=== PATIENT | female | born 2000 | race Caucasian/White ===

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

== ENCOUNTER 2018-03-18 04:12 | Emergency (ER) | payer BC, MEDICAID ==
[2018-03-18 04:20] VITALS: BP 115/61
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
== END 2018-03-18 06:06 | disposition home or self-care (01) ==
LOC: ER 04:12
DX: T59.811A Toxic effect of smoke, accidental (unintentional), initial encounter (principal); J70.5 Respiratory conditions due to smoke inhalation; Y92.039 Unspecified place in apartment as the place of occurrence of the external cause; Y93.84 Activity, sleeping; R51 Headache; R42 Dizziness and giddiness; Z88.2 Allergy status to sulfonamides; J45.909 Unspecified asthma, uncomplicated
CPT/HCPCS: 36415; 82375; 99283; G0378

== ENCOUNTER 2018-06-03 17:19 | Emergency (ER) | payer BC, MEDICAID ==
[2018-06-03 17:56] VITALS: BP 124/74
--- NOTE | 2018-06-03 18:37 | ER Document Report ---
HPI - HPI Patient complains to provider of: pilonidal cyst Onset: Other - 3 days Onset/Duration: Gradual Pain Level: 4 Context: 17 yo female came in because of pain to the area that she has had a pilonidal cyst incised about 3 months ago. Went to general surgeon who did not rec. surgery. No fever. 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 Associated Symptoms: None Exacerbated by: Sitting Relieved by: Denies Similar symptoms previously: Yes Recently seen / treated by doctor: No - ROS ROS below otherwise negative: Yes Systems Reviewed and Negative: Yes All other systems reviewed and negative Past Medical History - General Information source: Patient - Social History Smoking Status: Former Smoker Frequency of alcohol use: None Drug Abuse: None Lives with: Family Family History: Reviewed & Not Pertinent Pulmonary Medical History: Reports: Hx Asthma Renal/ Medical History: Reports: Hx Ovarian Cysts. Denies: Hx Peritoneal Dialysis GI Medical History: Reports: Hx Gastroesophageal Reflux Disease Psychiatric Medical History: Reports: Hx Depression Past Surgical History: Reports: Hx Orthopedic Surgery - 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, 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 - Immunizations Immunizations up to date: Yes Hx Diphtheria, Pertussis, Tetanus Vaccination: Yes Vertical Provider Document - CONSTITUTIONAL Agree With Documented VS: Yes Exam Limitations: No Limitations General Appearance: No Apparent Distress - INFECTION CONTROL TRAVEL OUTSIDE OF THE [place] IN LAST 30 DAYS: No - DERM Notes: inflamed, tender pilonidal area at the gluteal crest, no abscess induration. Course - Vital Signs Vital signs: Temp Pulse Resp BP Pulse Ox 98.6 F 74 16 124/74 100 06/03/18 17:55 06/03/18 17:55 06/03/18 17:55 06/03/18 17:55 06/03/18 17:55 Discharge - Discharge Clinical Impression: Pilonidal inflammation Condition: Good Disposition: HOME, SELF-CARE Instructions: Clindamycin ([facility]), Metronidazole ([facility]), Warm Packs ([facility]) Additional Instructions: Warm compress Tylenol up to 4000 mg a day for pain No work for 2 days Metronidazole 4 times a day for 7 days, do not drink alcohol clindamycin for 7 days Return to the emergency room for any increased size, or, pain or tenderness Prescriptions: Clindamycin HCl [Cleocin 150 mg Capsule] 300 mg PO TID #42 capsule Metronidazole 500 mg PO Q6H #28 tablet Forms: Return to Work Referrals: YISEL COY MD [ACTIVE STAFF] - Follow up as needed
== END 2018-06-03 18:50 | disposition home or self-care (01) ==
LOC: ER 17:19
DX: L05.91 Pilonidal cyst without abscess (principal); Z87.891 Personal history of nicotine dependence
CPT/HCPCS: 99282

== ENCOUNTER 2019-11-26 11:18 | Day surgery (SDC) | payer BC ==
[2019-11-18 10:59] LABS: ABSOLUTE EOSINOPHILS # (AUTO) 0.1 10^3/uL (0.0-0.6); ABSOLUTE LYMPHOCYTES (AUTO) 2.4 10^3/uL (0.5-4.7); ABSOLUTE MONOCYTES (AUTO) 0.7 10^3/uL (0.1-1.4); BASOPHILS % (AUTO) 0.6 % (0-2); EOSINOPHILS % (AUTO) 1.9 % (0-6); HEMATOCRIT 39.6 % (36.0-47.0); HEMOGLOBIN 13.5 g/dL (12.0-15.5); LYMPHOCYTES % (AUTO) 32.7 % (13-45); MEAN CORPUSCULAR HEMOGLOBIN 29.6 pg (27.0-33.4); MEAN CORPUSCULAR HGB CONC 34.1 g/dL (32.0-36.0); MEAN CORPUSCULAR VOLUME 87 fl (80-97); MONOCYTES % (AUTO) 9.3 % (3-13); PLATELET COUNT 198 10^3/uL (150-450); RED BLOOD COUNT 4.56 10^6/uL (3.72-5.28); RED CELL DISTRIBUTION WIDTH 13.1 % (11.5-14.0); SEGMENTED NEUTROPHILS % (AUTO) 55.5 % (42-78); TOTAL CELLS COUNTED % (AUTO) 100 %; WHITE BLOOD COUNT 7.2 10^3/uL (4.0-10.5)
[2019-11-18 11:30] LABS: ANION GAP 8 (5-19); BLOOD UREA NITROGEN 13 mg/dL (7-20); CALCIUM 9.9 mg/dL (8.4-10.2); CARBON DIOXIDE 28 mmol/L (22-30); CHLORIDE 105 mmol/L (98-107); GLUCOSE 90 mg/dL (75-110); POTASSIUM 4.6 mmol/L (3.6-5.0)
[~2019-11-26 11:18] MED LIST: CEFAZOLIN 1 GM/D5W RTU 1 GM/50 ML RTUPB IV ONE; CEFAZOLIN 1 GM/D5W RTU 1 GM/50 ML RTUPB IV PRN; LACTATED RINGERS 1000 ML IV PRN; ROCURONIUM BROMIDE INJ 50 MG/5 ML VIAL IV ONE; VECURONIUM BROMIDE INJ 10 MG VIAL IV ONE
[2019-11-26] MEDS ORDERED: SCOPOLAMINE HYDROBROMIDE 1.5 MG PATCH.TD72 ONE (12:45)
[2019-11-26] MEDS ORDERED: FENTANYL CITRATE INJ/PF 100 MCG/2 ML AMPUL ONE (13:19)
[2019-11-26] MEDS ORDERED: ONDANSETRON HCL INJ/PF 4 MG/2 ML SDV ONE (13:19)
[2019-11-26] MEDS ORDERED: DEXAMETHASONE SOD PHOSPHATE INJ 4 MG/1 ML VIAL ONE (13:19)
[2019-11-26] MEDS ORDERED: MIDAZOLAM 2 MG/2 ML INJ ONE (13:19)
[2019-11-26] MEDS ORDERED: PROPOFOL INJ 200 MG/20 ML VIAL IV ONE ×2 (13:20)
[2019-11-26] MEDS ORDERED: DEXMEDETOMIDINE INJ 80 MCG/20 ML VIAL IV ONE (13:21)
[2019-11-26] MEDS ORDERED: METHYLENE BLUE 50 MG/10 ML AMPULE ONE (13:48)
[2019-11-26] MEDS ORDERED: BUPIVACAINE INJ/PF LIPOSOME/PF 266 MG/20 ML SDV ONE (13:49)
[2019-11-26] MEDS ORDERED: BUPIVACAINE INJ/PF LIPOSOME/PF 266 MG/20 ML SDV INJ ONE (13:58)
[2019-11-26] MEDS ORDERED: METHYLENE BLUE 50 MG/10 ML AMPULE INJ ONE (14:00)
[2019-11-26] MEDS ORDERED: MORPHINE SULFATE 10 MG/ML INJ IV PRN (14:44)
[2019-11-26] MEDS ORDERED: OXYCODONE-ACETAMINOPHEN 5-325 MG TABLET PO PRN ×2 (14:44)
[2019-11-26] MEDS ORDERED: FENTANYL CITRATE INJ/PF 100 MCG/2 ML AMPUL IV PRN ×3 (14:44)
[2019-11-26] MEDS ORDERED: ONDANSETRON HCL INJ/PF 4 MG/2 ML SDV IV PRN (14:44)
[2019-11-26] MEDS ORDERED: MEPERIDINE HCL/PF INJ 25 MG/1 ML DISP.SYRIN IV PRN (14:44)
[2019-11-26] MEDS ORDERED: PROMETHAZINE HCL INJ 25 MG/1 ML VIAL IV PRN ×2 (14:44)
[2019-11-26] MEDS ORDERED: DIPHENHYDRAMINE HCL 50 MG/ML VIAL IV PRN (14:44)
--- NOTE | 2019-11-26 14:45 | Operative Report ---
Nonrecallable Operative Report DATE OF SURGERY: 11/26/19 PREOPERATIVE DIAGNOSIS: Pilonidal cyst POSTOPERATIVE DIAGNOSIS: Pilonidal cyst OPERATION: Pilonidal cystectomy SURGEON: BHANU MARTINEZ TISSUE REMOVED OR ALTERED: Pilonidal cyst subcutaneous tissue and skin COMPLICATIONS: None ESTIMATED BLOOD LOSS: 10 cc INTRAOPERATIVE FINDINGS: See note PROCEDURE: Patient was brought to the operating awake alert in stable condition induced under general anesthesia [place] [facility] [place] and then placed in the operating table in a prone position. The buttocks and buttock cleft were prepped and draped in usual sterile fashion. After appropriate timeout and site verification the procedure commenced. The area of the pilonidal cyst that had healed over was slightly open with a tonsil clamp and then instilled with methylene blue dyed saline. Elliptical incision was made around the buttock cleft to approximately 4 cm above the anal verge with a 15 blade. Dissection was then carried down through the subcutaneous tissue around the pilonidal cyst being sure to keep the methylene blue within the excised specimen. We carried our dissection down through the presacral fascia. Once this was completed the entire specimen was removed and with all the methylene blue blue dyed tissue. Hemostasis was obtained with Bovie cautery. A Conrado drain was then placed at the depth of the wound and brought out in the buttock cleft through a separate stab wound The subcutaneous tissue was reapproximated in 2 layers with interrupted 3-0 Vicryl skin was reapproximated with 2-0 nylon sterile dressing was applied which completed the procedure estimated blood loss was less than 10 cc sponge needle counts correct x2 the patient was awakened in the operating transferred back to the [facility] [place] and returned to recovery in stable condition Sponge needle counts were correct x2
[2019-11-26] MEDS ORDERED: HYDROCODONE/ACETAMINOPHEN 10-325 MG TABLET PO PRN (14:49)
--- NOTE | 2019-11-26 14:49 | Discharge Summary ---
Discharge Summary (SDC) - Discharge Final Diagnosis: Pilonidal cyst Date of Surgery: 11/26/19 Discharge Date: 11/26/19 Condition: Good Treatment or Instructions: She should commence sits baths with Epsom salts on Sunday for 20 minutes 2-3 times a day Prescriptions: Hydrocodone/Acetaminophen [Viola 10-325 Tablet] 1 each PO Q6 PRN #20 tablet PRN Reason: Referrals: JAZLYN IVEY MD [Primary Care Provider] - Discharge Diet: As Tolerated Discharge Activity: Activity As Tolerated, No Lifting Over 10 Pounds Report the Following to Your Physician Immediately: Fever over 101 Degrees, Unusual Bleeding - Patient needs a follow-up with me in 10 to 14 days
[2019-11-26] MEDS ORDERED: ACETAMINOPHEN 1,000 MG/100 ML RTUPB IV ONE (15:26)
[2019-11-26] MEDS ORDERED: HYDROCODONE/ACETAMINOPHEN 5-325 MG TABLET ONE (16:07)
[2019-11-26] MEDS ORDERED: HYDROCODONE/ACETAMINOPHEN 10-325 MG TABLET ONE (16:09)
[2019-11-26 17:53] VITALS: BP 107/62
== END 2019-11-26 17:25 | disposition home or self-care (01) ==
LOC: OROUT 11:18
PROVIDERS: ATTEND Surgery
DX: L05.01 Pilonidal cyst with abscess (principal); Z88.2 Allergy status to sulfonamides; J45.909 Unspecified asthma, uncomplicated; D64.9 Anemia, unspecified; D68.0 Von Willebrand disease; F17.210 Nicotine dependence, cigarettes, uncomplicated; Z79.899 Other long term (current) drug therapy; Z79.51 Long term (current) use of inhaled steroids; L05.91 Pilonidal cyst without abscess
CPT/HCPCS: 36415; 85025; 81025; 80048; 00300; 11770; J2250; J0690; J3490 ×3; J1100; J3010; J2405; J2704; J0131; C9290; Q9968; 300

== ENCOUNTER 2020-04-25 22:41 | Emergency (ER) | payer BC ==
[2020-04-25] MEDS ORDERED: ACETAMINOPHEN 325 MG TABLET PO ONE (22:52)
[2020-04-25] MEDS ORDERED: ACETAMINOPHEN 325 MG TABLET ONE (22:53)
[2020-04-26 01:41] LABS: ABSOLUTE MONOCYTES (AUTO) 1.3 10^3/uL (0.1-1.4); ABSOLUTE NEUT (AUTO) 12.6 10^3/uL (1.7-8.2); BASOPHILS % (AUTO) 0.3 % (0-2); HEMATOCRIT 39.5 % (36.0-47.0); HEMOGLOBIN 13.4 g/dL (12.0-15.5); LYMPHOCYTES % (AUTO) 6.5 % (13-45); MEAN CORPUSCULAR HEMOGLOBIN 30.3 pg (27.0-33.4); MEAN CORPUSCULAR HGB CONC 33.9 g/dL (32.0-36.0); MEAN CORPUSCULAR VOLUME 89 fl (80-97); MONOCYTES % (AUTO) 8.6 % (3-13); PLATELET COUNT 189 10^3/uL (150-450); RED BLOOD COUNT 4.42 10^6/uL (3.72-5.28); RED CELL DISTRIBUTION WIDTH 12.6 % (11.5-14.0); SEGMENTED NEUTROPHILS % (AUTO) 84.6 % (42-78); TOTAL CELLS COUNTED % (AUTO) 100 %; WHITE BLOOD COUNT 14.9 10^3/uL (4.0-10.5)
[2020-04-26 01:45] LABS: APPEARANCE,URINE SLIGHTLY-CLOUDY; BILIRUBIN,URINE NEGATIVE (NEGATIVE); COLOR,URINE YELLOW; GLUCOSE, URINE NEGATIVE (NEGATIVE); KETONES,URINE NEGATIVE (NEGATIVE); LEUKOCYTE ESTERASE,URINE NEGATIVE (NEGATIVE); NITRITE,URINE NEGATIVE (NEGATIVE); PROTEIN,URINE NEGATIVE (NEGATIVE); URINE SPECIFIC GRAVITY 1.009; UROBILINOGEN,URINE NEGATIVE mg/dL (<2.0)
[2020-04-26 01:52] LABS: ALBUMIN 4.2 g/dL (3.5-5.0); ALKALINE PHOSPHATASE 74 U/L (38-126); ANION GAP 11 (5-19); ASPARTATE AMINO TRANSFERASE 19 U/L (14-36); BILIRUBIN,TOTAL 0.9 mg/dL (0.2-1.3); BLOOD UREA NITROGEN 10 mg/dL (7-20); CALCIUM 9.3 mg/dL (8.4-10.2); CARBON DIOXIDE 21 mmol/L (22-30); CHLORIDE 103 mmol/L (98-107); GLUCOSE 123 mg/dL (75-110); POTASSIUM 3.6 mmol/L (3.6-5.0); TOTAL PROTEIN 7.4 g/dL (6.3-8.2)
--- NOTE | 2020-04-26 02:54 | ER Document Report ---
ED ENT - General Chief Complaint: Sore Throat Stated Complaint: HEADACHE,FEVER,SORE THROAT,EAR ACHE Time Seen by Provider: 04/26/20 01:03 Primary Care Provider: JAZLYN IVEY MD [Primary Care Provider] - Follow up in 3-5 days Mode of Arrival: Ambulatory Information source: Patient Notes: 19-year-old female presented to ED for complaint of right ear pain and sore thr oat congestion. She states she started developing the fever Sunday a.m. and has had it off and on since then. She is alert oriented respirations regular and unlabored speaking in full sentences. Strep test was negative that was done before I saw her. TRAVEL OUTSIDE OF THE [place] IN LAST 30 DAYS: No - HPI Patient complains to provider of: Ear problem, Throat problem Onset: Other - Sunday a.m. Onset/Duration: Intermittent Quality of pain: Achy Severity: Moderate Pain Level: 1 Context: Recent Illness Location of pain: Ears, Nose, Throat Associated symptoms: Ear pain, Fever, Runny nose, Sinus pain, Sore throat Similar symptoms previously: Yes Recently seen / treated by doctor: No - Related Data Allergies/Adverse Reactions: Sulfa (Sulfonamide Antibiotics) Allergy (Severe, Verified 04/26/20 01:07) rash NSAIDS (Non-Steroidal Anti-Inflamma Adverse Reaction (Severe, Verified 04/26/20 01:07) Past Medical History - General Information source: Patient - Social History Smoking Status: Never Smoker Frequency of alcohol use: Social Drug Abuse: None Family History: Reviewed & Not Pertinent Patient has homicidal ideation: No - Past Medical History Cardiac Medical History: Reports: None Pulmonary Medical History: Reports: Hx Asthma - hx of no meds EENT Medical History: Reports: None Neurological Medical History: Reports: None Endocrine Medical History: Reports: None Renal/ Medical History: Reports: Hx Ovarian Cysts Malignancy Medical History: Reports: None GI Medical History: Reports: Hx Gastroesophageal Reflux Disease Musculoskeletal Medical History: Reports None Skin Medical History: Reports None Psychiatric Medical History: Reports: Hx Depression Traumatic Medical History: Reports: None Infectious Medical History: Reports: None Past Surgical History: Reports: Hx Orthopedic Surgery - 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, 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 - Immunizations Immunizations up to date: Yes Hx Diphtheria, Pertussis, Tetanus Vaccination: Yes Review of Systems - Review of Systems Constitutional: Fever, Recent illness EENT: Ear pain, Nose discharge, Sinus discharge, Throat pain Cardiovascular: No symptoms reported Respiratory: No symptoms reported Gastrointestinal: No symptoms reported Genitourinary: No symptoms reported Female Genitourinary: No symptoms reported Musculoskeletal: No symptoms reported Skin: No symptoms reported Hematologic/Lymphatic: No symptoms reported Neurological/Psychological: No symptoms reported -: Yes All other systems reviewed and negative Physical Exam - Vital signs Vitals: Temp Pulse Resp BP Pulse Ox 101.9 F H 141 H 18 104/63 96 04/25/20 22:47 04/25/20 22:47 04/25/20 22:47 04/25/20 22:47 04/25/20 22:47 Interpretation: Normal - General General appearance: Appears well, Alert - HEENT Head: Normocephalic, Atraumatic Eyes: Normal Pupils: PERRL Ears: Normal External canal: Normal Tympanic membrane: Normal Nasal: Purulent discharge, Swelling Mouth/Lips: Normal Mucous membranes: Normal Pharynx: Erythema, Post nasal drainage Neck: Normal - Respiratory Respiratory status: No respiratory distress Chest status: Nontender Breath sounds: Normal Chest palpation: Normal - Cardiovascular Rhythm: Regular Heart sounds: Normal auscultation Murmur: No - Abdominal Inspection: Normal Distension: No distension Bowel sounds: Normal Tenderness: Nontender Organomegaly: No organomegaly - Back Back: Normal, Nontender - Extremities General upper extremity: Normal inspection, Nontender, Normal color, Normal ROM, Normal temperature General lower extremity: Normal inspection, Nontender, Normal color, Normal ROM, Normal temperature, Normal weight bearing. No: Pranay's sign - Neurological Neuro grossly intact: Yes Cognition: Normal Orientation: AAOx4 Miriam Coma Scale Eye Opening: Spontaneous Miriam Coma Scale Verbal: Oriented Miriam Coma Scale Motor: Obeys Commands Miriam Coma Scale Total: 15 Speech: Normal Motor strength normal: LUE, RUE, LLE, RLE Sensory: Normal - Psychological Associated symptoms: Normal affect, Normal mood - Skin Skin Temperature: Warm Skin Moisture: Dry Skin Color: Normal Course - Re-evaluation Re-evalutation: 04/26/20 09:03 Patient presents with upper respiratory symptoms worrisome for possible Covid 19. Patient does not have emergency worring symptoms such as difficulty breathing, shortness of breath, chest pain, pressure, confusion or cyanosis. Patient appears suitable for discharge as they are not of an advanced age, do not have any chronic medical conditions such as diabetes, CAD, immune deficiency, chronic lung disease or chronic kidney disease. Patient's vital signs are stable and patient is nontoxic in appearance. Good return precautions have been discussed with patient, patient verbalized understanding and is agree able with discharge plan of care at this time. - Vital Signs Vital signs: Temp Pulse Resp BP Pulse Ox 98.1 F 98 16 117/70 100 04/26/20 03:20 04/26/20 03:20 04/26/20 03:20 04/26/20 03:20 04/26/20 03:20 - Laboratory Result Diagrams: 04/26/20 01:15 04/26/20 01:15 Laboratory results interpreted by me: 04/26/20 04/26/20 01:15 01:15 WBC 14.9 H Lymph % (Auto) 6.5 L Absolute Neuts (auto) 12.6 H Seg Neutrophils % 84.6 H Sodium 134.9 L Carbon Dioxide 21 L Glucose 123 H Discharge - Discharge Clinical Impression: Sore throat (viral), Otalgia, right ear, Person under investigation for COVID- 19 Headache Qualifiers: Headache type: unspecified Headache chronicity pattern: unspecified pattern Intractability: not intractable Qualified Code(s): R51 - Headache URI (upper respiratory infection) Qualifiers: URI type: unspecified viral URI Qualified Code(s): J06.9 - Acute upper respiratory infection, unspecified Condition: Stable Disposition: HOME, SELF-CARE Additional Instructions: UPPER RESPIRATORY ILLNESS: You have a viral infection of the respiratory passages -- a "cold." This common infection causes nasal congestion, drainage, and often sore throat and cough. It is highly contagious. The disease usually lasts about 10 to 14 days. There is no "cure" for the viral infection -- it must run its course. If there is a complication, such as bacterial infection in the nose, sinuses, middle ear, or bronchial tubes, antibiotics may be required. The antibiotics wo n't affect the virus. Drink plenty of fluids. A humidifier may help. An expectorant medication or decongestant may make you more comfortable. Use acetaminophen or ibuprofen for fever or aches. See the doctor if fever persists over two days, if there is any significant worsening of your symptoms, or if you simply fail to improve as expected. SORE THROAT: Sore throats may be caused by viruses, bacteria, or fungi. Most are due to a virus, and must get better on their own. Bacterial sore throats, particularly those due to "strep," need treatment with antibiotics. If an antibiotic is prescribed, be sure to take the medication for a full 10 days. Failure to take the antibiotic can result in complications such as rheumatic fever. Sometimes, an injection of antibiotics is given instead of pills or liquid. This single "shot" is equal in effectiveness to the oral medi cation. To relieve symptoms, take acetaminophen for pain. Sip clear liquids frequently, or eat popsicles or ice chips. Anesthetic sprays or lozenges may help. Make sure the air in the room is not too dry. Avoid using decongestants or antihistamines. Call the doctor if there is no improvement in two days, or if you have difficulty breathing, increasing throat pain, high fever, rash, or frequent vomiting. Your strep test was negative. A throat culture will be run if it comes back po sitive you will be notified and antibiotics will be called to your pharmacy of choice. You have been recommended treatment with Claritin 10 mg Sudafed 30 mg and Mucinex 600 mg. These are all [id number] medications for cough cold congestion. You do need to call the go to the pharmacist to get the Sudafed from behind the counter please get a little red pills they are more effective. You could also use Flonase which is gerf-twh-zojbvoz 1 spray each nostril twice a day. You could also use salt soda solution gargles. These will help to remove the drainage from the back your throat. Chloraseptic spray was uncf-zlk-buvhhko that will also help with your sore throat. Salt and soda solution gargle 1 quart of water 1 tablespoon of salt 1 teaspoon of baking soda Mixed 3 ingredients together and boil for 1 minute Placed in a covered quart jar Use 1/2 ounce of cold solution to gargle 3 times a day Acetaminophen Acetaminophen may be taken for pain relief or fever control. It's much safer than aspirin, offering a wider range of "safe" dosages. It is safe during . Some brand names are Tylenol, Panadol, Datril, Anacin 3, Tempra, and Liquiprin. Acetaminophen can be repeated every four hours. The following are maximum recommended dosages: WEIGHT Dose Drops Elixir Chewable(80mg) (LBS.) drprs=droppers tsp=teaspoon 6 40 mg .4 ml (1/2) 6-11 80 mg .8 ml (full) 1/2 tsp 1 tab 12-16 120 mg 1 1/2 drprs 3/4 tsp 1 1/2 tabs 17-23 160 mg 2 drprs 1 tsp 2 tabs 24-30 240 mg 3 drprs 1 1/2 tsp 3 tabs 30-35 320 mg 2 tsp 4 tabs 36-41 360 mg 2 1/4 tsp 4 1/2 tabs 42-47 400 mg 2 1/2 tsp 5 tabs 48-53 480 mg 3 tsp 6 tabs 54-59 520 mg 3 1/4 tsp 6 1/2 tabs 60-64 560 mg 3 1/2 tsp 7 tabs 65-70 600 mg 3 3/4 tsp 7 1/2 tabs 71-76 640 mg 4 tsp 8 tabs 77-82 720 mg 4 1/2 tsp 9 tabs 83-88 800 mg 5 tsp 10 tabs >89 pounds or adults 650 mg to 900 mg Acetaminophen can be repeated every four hours. Maximum daily dose not to exceed 4000 mg. These maximum recommended dosages are slightly higher than the dosages written on the product container, but these dosages are very safe and well below the toxic dosage for acetaminophen. Patient was provided with discharge information including: As a person under investigation for Covid 19, the [place] department of Health and Human Services, division of public health advises you to adhere to the following guidance until your test results are reported to you. If your test result is positive, you will receive additional information from your provider and your local health department at that time. Remain at home until you are cleared by the health provider or public health authorities. Keep a log of visitors to your home, notify any visitors to your home of your isolation status. If you plan to move to a new address or leave the county, notify the local health department in your County. Call your doctor or seek care if you have an urgent medical need. Before seeking medical care, call ahead to get instructions from the provider before arriving at the medical office clinic or hospital. Notify them that you are being tested for the virus that causes Covid 19 so that arrangements can be made, as necessary, to prevent transmission to others in the healthcare setting. Next, notify the local health department in your county. If a medical emergency arises and you need to call 911, inform the first responders that you are being tested for the virus that causes Covid 19. Next, notify the local health department in your county. Referrals: JAZLYN IVEY MD [Primary Care Provider] - Follow up in 3-5 days
[2020-04-26 03:23] VITALS: BP 117/70
== END 2020-04-26 03:20 | disposition home or self-care (01) ==
LOC: ER 22:41
DX: J02.8 Acute pharyngitis due to other specified organisms (principal); B97.89 Other viral agents as the cause of diseases classified elsewhere; H92.01 Otalgia, right ear; R50.9 Fever, unspecified; J34.89 Other specified disorders of nose and nasal sinuses; R09.89 Other specified symptoms and signs involving the circulatory and respiratory systems; R09.82 Postnasal drip; Z88.2 Allergy status to sulfonamides; Z20.828 Contact with and (suspected) exposure to other viral communicable diseases
CPT/HCPCS: 99283; 36415; 87070; 87880; 84703; 85025; 87635; 86308; 80053; 81001; C9803